=== PATIENT | female | born 1970 | race Caucasian/White ===

== ENCOUNTER 2016-08-24 14:26 | Emergency (ER) | payer BC ==
[2016-08-24 15:29] VITALS: BP 130/84
--- NOTE | 2016-08-24 16:47 | UC ---
Throat Pain/Nasal Elmer HPI - HPI Summary HPI Summary: complaint intermittent headaches that started over 1 week then 2 days ago started to have nasal congestion and cough vomited 1x feels muscle achiness bilateral ear pain denies sore throat denies fever but has had chills taking robitussin and tylenol cold medication with some relief hasn't needed albuterol inhaler during this illness - History of Current Complaint Chief Complaint: UCRespiratory Stated Complaint: COUGH BODYACHES HEADACHE Time Seen by Provider: 08/24/16 16:42 Hx Obtained From: Patient Hx Last Menstrual Period: 2 WEEKS AGO (HAD ABLATION) - Allergies/Home Medications Allergies/Adverse Reactions: Allergies Allergy/AdvReac Type Severity Reaction Status Date / Time Penicillins Allergy Hives Verified 08/24/16 15:29 Erythromycin AdvReac Severe Vomiting Verified 08/24/16 15:29 Home Medications: Home Medications Cyclosporine 0.05% OPHTH (NF) [Restasis 0.05% OPHTH] 08/24/16 [History] GuaiFENesin DM* [Robitussin DM*] PRN 08/24/16 [History] Heat Wraps [Thermacare Muscle/Joint] PRN 08/24/16 [History] [id number] W/ APAP [Tylenol Cold & Flu Severe [id number] mg] 1 tab PO PRN 08/24/16 [History] PMH/Surg Hx/FS Hx/Imm Hx Previously Healthy: Yes Respiratory History Of: Reports: Asthma Cancer History Of: Denies: Breast Cancer - Surgical History Surgical History: Yes Surgery Procedure, Year, and Place: CERVICAL ABLATION, TONSILLECTOMY, SOFT PALATE SHAVED (UVULA REMOVED) - Family History Known Family History: Negative: Cardiac Disease, Hypertension, Diabetes - Social History Occupation: Employed Full-time Lives: With Family Alcohol Use: Weekly Alcohol Amount: 2/WEEK Substance Use Type: None Smoking Status (MU): Never Smoked Tobacco Review of Systems Constitutional: Chills, Fatigue Skin: Negative Eyes: Negative ENT: Sore Throat, Ear Ache, Nasal Discharge Respiratory: Cough Cardiovascular: Negative Gastrointestinal: Negative Genitourinary: Negative Motor: Negative Neurovascular: Negative Musculoskeletal: Negative Neurological: Headache Psychological: Negative All Other Systems Reviewed And Are Negative: Yes Physical Exam Triage Information Reviewed: Yes Appearance: No Pain Distress, Well-Nourished, Ill-Appearing Vital Signs: Initial Vital Signs Temp 99.3 F 08/24/16 15:25 Pulse 86 08/24/16 15:25 Resp 18 08/24/16 15:25 BP 130/84 08/24/16 15:25 Pulse Ox 99 08/24/16 15:25 Vital Signs Reviewed: Yes Eyes: Positive: Conjunctiva Clear ENT: Positive: Pharyngeal erythema, Nasal congestion, Nasal drainage, TMs normal , Tonsillar swelling, Other: - righ ear canal edematous and erythema Neck: Positive: No Lymphadenopathy Respiratory: Positive: Lungs clear, Normal breath sounds, No respiratory distress Throat Pain/Nasal Course/Dx - Differential Dx/Diagnosis Differential Diagnosis/HQI/PQRI: URI, Other - otitis externa Provider Diagnoses: otitis externa, influenza Discharge - Discharge Plan Condition: Stable Disposition: HOME Prescriptions: Albuterol HFA INHALER* [Ventolin HFA Inhaler*] 2 puff INH Q4H PRN #1 mdi PRN Reason: Cough Ciproflox/Dexameth OTIC.SUSP* [Ciprodex OTIC.SUSP*] 4 drop RIGHT EAR BID #1 btl Patient Education Materials: Otitis Externa (ED), Influenza (ED) Referrals: Raul Merlos MD [Primary Care Provider] - Additional Instructions: Your blood pressure is pre-hypertensive reading. Please contact your primary care provider within 1 day -4 weeks for further evaluation TREATING THE FLU (Influenza) What is the Flu? Influenza, or "flu," is an infection of the breathing tubes and lungs. Flu happens mostly in late fall, winter, or early spring. It is very easily spread from one person to another by coughing and sneezing. The flu affects people of all ages. Symptoms Might Include: Stuffed up or runny nose Cough which may be worse at night that lasts for one to two weeks Fever especially the first 2 days and which may go up and down Headache and muscle aches Mild sore throat Poor appetite Tiredness Influenza (Flu) Vaccine Much of the illness and caused by influenza can be prevented by annual flu vaccination. It is especially recommended for people who are at high risk. Those at higher risk include all people aged 65 years or older and people of any age with chronic diseases of the heart, lung or kidneys, diabetes, immunosuppression, or severe forms of anemia. Other high-risk groups are, women who will be more than 3 months during the flu season, and children. Treatment Recommendations: Take acetaminophen (Tylenol, etc.) for aches and fever. Do not ever give aspirin to children. Drink lots of fluids. Use a cool-mist humidifier night and day if it helps you. Keep room at a comfortable temperature for you. Do not overheat the room. Do not overdress. Do not smoke. Get as much rest as you can. Call Your Doctor or Return Here IF: You have a fever that lasts for more than three days. You have trouble breathing. You begin to cough up green, yellow, or red mucous. Your cough gets worse or you have chest pain with coughing or deep breathing. You start to have any other symptoms that worry you.
== END 2016-08-24 17:27 | disposition home or self-care (01) ==
LOC: UCEAST 14:26
DX: H60.90 Unspecified otitis externa, unspecified ear (principal); J11.1 Influenza due to unidentified influenza virus with other respiratory manifestations; J45.909 Unspecified asthma, uncomplicated; Z88.0 Allergy status to penicillin
CPT/HCPCS: 87502; 99212; G0463